=== PATIENT | male | born 1990 | race Two or more races ===

== ENCOUNTER 2024-11-09 08:58 | Emergency (ER) | payer MEDICAID ==
[~2024-11-09] VITALS: Ht 177.8 cm; Wt 79.3 kg
[2024-11-09] MEDS ORDERED: AMOX500T3 PO (09:20)
[2024-11-09] MEDS ORDERED: ACET500T58 PO (09:20)
[2024-11-09 09:29] VITALS: BP 115/74; PULSE 99; RESP 18; TEMP 98.1; O2SAT 95
--- NOTE | 2024-11-09 09:30 | ED.PDOC ---
Eye-HPI HPI Comments 33-year-old male who presents to the ED for chief complaint of tooth pain. The patient states he has been having tooth and jaw pain by the right upper incisors for the past two days. Patient states the pain had gone away temporarily but states it has been increasing with noted pain and swelling and patient came to the ED for further evaluation. Patient otherwise denies nausea vomiting fever cough chills. The patient vitals otherwise stable in the ED. patient denies having seen a dentist prior to ED arrival. Patient otherwise denies any other symptoms at this time. Chief Complaint: Tooth Pain Time Seen by MD: 09:18 Reviewed Notes: Medications, Allergies Allergies: Coded Allergies: NO KNOWN ALLERGIES (Unverified , 11/09/24) Home Meds Active Scripts Acetaminophen (Acetaminophen) 500 Mg Tab, 500 MG PO Q6HP PRN for 10 Days, #40 TAB 0 Refills Prov:MARLIN ELENA NP 11/09/24 Amoxicillin Trihydrate (Amoxicillin) 500 Mg Tab, 1 TAB PO BID for 10 Days, #20 TAB 0 Refills Prov:MARLIN ELENA [employer] 11/09/24 Information Source: Patient Mode of Arrival: Ambulatory Past Medical History PAST MEDICAL HISTORY: Denies Surgical History: Denies all surgeries Social History Smoker: Non-Smoker Alcohol: Denies ETOH Use Drugs: Denies Drug Use Lives In: Home All Other Systems: Reviewed and Negative (See HPI) Physical Exam General Appearance: No Apparent Distress, Normal HEENT: Normal ENT Inspection, Pharynx Normal, TMs Normal Neck: Full Range of Motion, Non-Tender, Normal, Normal Inspection Respiratory: Chest Non-Tender, Lungs Clear, No Accessory Muscle Use, No Respiratory Distress, Normal Breath Sounds Cardiovascular: No Murmur, No Gallop, Regular Rate/Rhythm Breast Exam: Deferred Gastrointestinal: No Organomegaly, Non Tender, No Pulsatile Mass, Normal Bowel Sounds, Soft Genitalia: Deferred Pelvic: Deferred Rectal: Deferred Extremities: No calf tenderness, Normal capillary refill, Normal inspection, Normal range of motion, Non-tender, No pedal edema Musculoskeletal : Apperance: Normal Neurologic: Alert, astronomy instructor II-XII nml as Tested, No Motor Deficits, Normal Affect, Normal Mood, No Sensory Deficits Cerebellar Function: Normal Reflexes: Normal Skin: Dry, Normal Color, Warm Lymphatic: No Adenopathy Was a procedure done? Was a procedure done?: No EENT DIFF Eye: Other Sore Throat: Peritonsillar Abscess, Peritonsillar Cellulitis Other Differential Diagnosis Dental pain, tooth pain, dental caries, X-Ray, Labs, Meds, VS Vital Signs Date Time Temp Pulse Resp B/P (MAP) Pulse Ox O2 Delivery O2 Flow Rate FiO2 11/09/24 09:29 99 18 95 Room Air 11/09/24 09:29 98.1 98 18 115/74 (88) 98 98.1 11/09/24 09:00 98.0 108 19 106/67 95 98.0 X-Ray, Labs, Meds, VS Comment 33-year-old male who presents to the ED for chief complaint of tooth pain. Patient arrives alert and oriented, ABC's intact, afebrile, vital signs stable, saturating well in room air Afebrile, vitals within normal limits. Exam as above and airway fully patent and in no respiratory distress. The patient has no neck swelling, no dysphonia or hoarseness, no lymphadenopathy. No trismus or swollen tongue to suggest Jani's angina. No overt e/o peritonsillar abscess or retropharyngeal abscess. No overt e/o deep space infection; nontoxic appearing and tolerating PO. Non-focal neuro exam with low suspicion for Lemierres. No pain with percussion, low suspicion for periapical abscess. No mastoid tenderness so do not suspect mastoiditis and no pain with manipulation of ear to suggest otitis externa. Trial antibiotics with cautious return precautions discussed w/ full understanding. Patient is stable for discharge at this time. External notes reviewed. Test results and diagnostic imaging interpreted. All diagnostic findings, discharge care, education and instructions provided Follow-up with PCP in 2 to 3 days Patient verbalized understanding and agreed to treatment plan Vital signs stable, afebrile, no acute distress noted Patient ambulatory with strong steady gait Advised to return precautions for any new or worsening symptoms, return to ER immediately for re-evaluation Patient is aware that the purpose of this visit was for an acute medical emergency requiring emergent stabilization. Chronic conditions, including malignancies have not been ruled out. Patient is instructed to follow up with PCP as directed and discharge instructions for continued care and workup. If unable to arrange follow-up, patient is to return to the emergency department for reassessment. Patient (parent or legal guardian if applicable) was given verbal and written discharge instructions and acknowledges understanding. Time of 1ST Reevaluation: 09:15 Reevaluation 1ST: Improved Patient Education/Counseling: Diagnosis, Treatment Family Education/Counseling: No Family Present SEPSIS Sepsis Screen Date sepsis recognized/suspect: Nov 09, 2024 Time Sepsis recognized/suspect: 899 Recent Procedure: No On Antibiotic Therapy: No Respiratory Rate >20: No Heart Rate >90: Yes Temp<36 C (96.8 F) or >38.3 C: No SBP <90 or MAP <65 mmHG: No New Acute Mental Status Change: No Is the patient on CPAP, BIPAP,: No Vital Signs Date Time Temp Pulse Resp B/P (MAP) Pulse Ox O2 Delivery O2 Flow Rate FiO2 11/09/24 09:29 99 18 95 Room Air 11/09/24 09:29 98.1 98 18 115/74 (88) 98 98.1 11/09/24 09:00 98.0 108 19 106/67 95 98.0 Departure 1 Departure Time of Disposition: 09:32 Impression: Primary Impression: Tooth pain Disposition: HOME / SELF CARE / HOMELESS Condition: Fair Additional Instructions: Discharge Note: Continue on your medications. Do not drive when taking narcotics. Drink plenty of fluids. Follow up with your primary Dentist. Take your prescriptions as ordered. If your condition becomes worse call and follow up with your primary Dr. for instructions or return to the ER if needed. Thank you for visiting [facility]. e-Prescriptions Acetaminophen (Acetaminophen) 500 Mg Tab 500 MG PO Q6HP PRN for 10 Days, #40 TAB 0 Refills Prov: MARLIN ELENA NP 11/09/24 Amoxicillin Trihydrate (Amoxicillin) 500 Mg Tab 1 TAB PO BID for 10 Days, #20 TAB 0 Refills Prov: MARLIN ELENA [employer] 11/09/24 Critical Care Note Critical Care Time?: No Stability Stability form required: No Heart Score Heart Score: Heart Score Response (Comments) Value History N/A 0 EKG N/A 0 Age N/A 0 Risk Factors N/A 0 Troponin N/A 0 Total 0 I personally scribed for MARLIN ELENA NP ([email or web address]) on 11/09/24 at 09:30. Electronically submitted by Kael SALOMON). MARLIN ELENA NP Nov 09, 2024 09:30
== END 2024-11-09 09:31 | disposition home or self-care (01) ==
LOC: ER 08:58
DX: K08.89 Other specified disorders of teeth and supporting structures (principal); Z79.899 Other long term (current) drug therapy

== ENCOUNTER 2025-02-23 10:00 | Emergency (ER) | payer SELFPAY ==
[~2025-02-23] VITALS: Ht 177.8 cm; Wt 78.0 kg
[~2025-02-23 10:00] MED LIST: ACET500T58 PO; AMOX500T3 PO
--- NOTE | 2025-02-23 10:38 | ED.PDOC ---
History of Present Illness HPI Comments 34M presents to the ER w/ prior MHx of Face pain/swelling. Pt reports on having a dental infx to a tooth that is missing and having similar facial swelling 3 months ago. Pt states on being given antibiotics which subsided the swelling but the pt had a flare up of swelling to the right maxillofacial region of the face. Denies any symptoms at this time. Patient denies any CP, SOB, dizziness, numbness, weakness, tingling, fever, chills, or recent fall. Chief Complaint: Face pain Time Seen by MD: 10:30 Reviewed Notes: Nurses Notes, Medications, Allergies Allergies: Coded Allergies: NO KNOWN ALLERGIES (Unverified , 11/09/24) Home Meds Active Scripts Clindamycin Hcl (Clindamycin Hcl) 300 Mg Cap, 1 CAP PO TID for 10 Days, #30 CAP Prov:BRENDAN NUNEZ MD 02/23/25 Amoxicillin & Pot Clavulanate (AUGMENTIN TABLET) 875 Mg Tb, 875 MG PO BID for 10 Days, #20 TAB Prov:BRENDAN NNUEZ MD 02/23/25 Acetaminophen (Acetaminophen) 500 Mg Tab, 500 MG PO Q6HP PRN for 10 Days, #40 TAB 0 Refills Prov:MARLIN ELENA NP 11/09/24 Amoxicillin Trihydrate (Amoxicillin) 500 Mg Tab, 1 TAB PO BID for 10 Days, #20 TAB 0 Refills Prov:MARLIN ELENA NP 11/09/24 Information Source: Patient Mode of Arrival: Ambulatory Severity: Moderate Timing: Hours Duration: Since onset, Hours Prehospital treatment: None Past Medical History PAST MEDICAL HISTORY: Denies Surgical History: Denies all surgeries Family History Family History: Reviewed,noncontributory to illness, Unknown Social History Smoker: Non-Smoker Alcohol: Denies ETOH Use Drugs: Denies Drug Use Lives In: Home Constitutional: denies: chills, diaphoresis, fatigue, fever, malaise, sweats, weakness, others EENTM: reports: others (right maxillofacial swelling); denies: blurred vision, double vision, ear bleeding, ear discharge, ear drainage, ear pain, ear ringing, eye pain, eye redness, hearing loss, mouth pain, mouth swelling, nasal discharge, nose bleeding, nose congestion, nose pain, photophobia, tearing, throat pain, throat swelling, voice changes Respiratory: denies: cough, hemoptysis, orthopnea, SOB at rest, shortness of breath, SOB with excertion, stridor, wheezing, others Cardiovascular: denies: chest pain, dizzy spells, diaphoresis, Dyspnea on exertion, edema, irregular heart beat, left arm pain, lightheadedness, palpitations, PND, syncope, others Gastrointestinal: denies: abdomen distended, abdominal pain, blood streaked bowels, constipated, diarrhea, dysphagia, difficulty swallowing, hematemesis, melena, nausea, poor appetite, poor fluid intake, rectal bleeding, rectal pain, vomiting, others Genitourinary: denies: burning, dysuria, flank pain, frequency, hematuria, incontinence, penile discharge, penile sore, pain, testicle pain, testicle swelling, urgency, others Neurological: denies: dizziness, fainting, headache, left sided numbness, left sided weakness, numbness, paresthesia, pre-existing deficit, right sided numbness, right sided weakness, seizure, speech problems, tingling, tremors, weakness, others Musculoskeletal: denies: back pain, gout, joint pain, joint swelling, muscle pain, muscle stiffness, neck pain, others Integumetry: denies: bruises, change in color, change in hair/nails, dryness, laceration, lesions, lumps, rash, wounds, others Allergic/Immunocompromised: denies: Difficulty Healing, Frequent Infections, Hives, Itching, others Hematologic/Lymphatic: denies: anemia, blood clots, easy bleeding, easy bruising, swollen glands, others Endocrine: denies: excessive hunger, excessive sweating, excessive thirst, excessive urination, flushing, intolerance to cold, intolerance to heat, unexplained weight gain, unexplained weight loss, others Psychiatric: denies: anxiety, bipolar disorder, depression, hopeless, panic d isorder, schizophrenia, sleepless, suicidal, others All Other Systems: Reviewed and Negative Physical Exam General Appearance: Moderate Distress, Normal HEENT: Normal ENT Inspection, Pharynx Normal, TMs Normal Neck: Full Range of Motion, Non-Tender, Normal, Normal Inspection Respiratory: Chest Non-Tender, Lungs Clear, No Accessory Muscle Use, No Respiratory Distress, Normal Breath Sounds Cardiovascular: No Edema, No JVD, No Murmur, No Gallop, Normal Peripheral Pulses, Regular Rate/Rhythm Breast Exam: Deferred Gastrointestinal: No Organomegaly, Non Tender, No Pulsatile Mass, Normal Bowel Sounds, Soft Genitalia: Deferred Pelvic: Deferred Rectal: Deferred Extremities: No calf tenderness, Normal capillary refill, Normal inspection, Normal range of motion, Non-tender, No pedal edema Musculoskeletal : Apperance: Normal Neurologic: Alert, pickle sorter II-XII nml as Tested, No Motor Deficits, Normal Affect, Normal Mood, No Sensory Deficits Cerebellar Function: Normal Reflexes: Normal Skin: Dry, Normal Color, Warm Peripheral Pulses: 3+ Radial (R), 3+ Radial (L) Lymphatic: No Adenopathy Was a procedure done? Was a procedure done?: No Differential Dx Considerations may include: Anemia Electrolyte imbalance X-Ray, Labs, Meds, VS Vital Signs Date Time Temp Pulse Resp B/P (MAP) Pulse Ox O2 Delivery O2 Flow Rate FiO2 02/23/25 15:55 98.7 98 17 122/83 (96) 96 98.7 02/23/25 13:57 98 Room Air* 0 21 02/23/25 12:17 104 17 96 Room Air 02/23/25 12:17 99.0 104 17 115/82 (93) 96 99.0 02/23/25 10:06 98.4 116 17 123/88 98 98.4 Current Medications Medications (Trade) Dose Ordered Sig/Tierra Route Start Time Stop Time Status Last Admin Ceftriaxone Sodium 50 ml @ 100 mls/hr ONCE ONCE IV 02/23/25 11:15 02/23/25 11:48 DC 02/23/25 13:47 Clindamycin Phosphate 50 ml @ 50 mls/hr ONCE ONCE IV 02/23/25 11:15 02/23/25 12:14 DC 02/23/25 13:47 Sodium Chloride 1,000 ml @ 1,000 mls/hr Q1H ONCE IV 02/23/25 11:15 02/23/25 12:14 DC 02/23/25 12:28 Patient alert. Came in because of right facial swelling. Dental infection. Vitals stable. Answering all questions. Was given Rocephin. Establish intravenous access. Was given fluids. Was given prescription of Augmentin clindamycin antibiotic. No acute process. Was told to follow up with his primary care physician. Was told to come back if there is any problem. Time of 1ST Reevaluation: 11:00 Reevaluation 1ST: Unchanged Patient Education/Counseling: Diagnosis, Treatment, Prognosis Family Education/Counseling: No Family Present SEPSIS Sepsis Screen Date sepsis recognized/suspect: Feb 23, 2025 Time Sepsis recognized/suspect: 1008 Recent Procedure: No On Antibiotic Therapy: No Respiratory Rate >20: No Heart Rate >90: Yes Temp<36 C (96.8 F) or >38.3 C: No SBP <90 or MAP <65 mmHG: No New Acute Mental Status Change: No Is the patient on CPAP, BIPAP,: No Vital Signs Date Time Temp Pulse Resp B/P (MAP) Pulse Ox O2 Delivery O2 Flow Rate FiO2 02/23/25 15:55 98.7 98 17 122/83 (96) 96 98.7 02/23/25 13:57 98 Room Air* 0 21 02/23/25 12:17 104 17 96 Room Air 02/23/25 12:17 99.0 104 17 115/82 (93) 96 99.0 02/23/25 10:06 98.4 116 17 123/88 98 98.4 Medications Medications Dose Ordered Sig/Tierra Route Start Time Stop Time Status Last Admin Dose Admin Ceftriaxone Sodium 50 ml @ 100 mls/hr ONCE ONCE IV 02/23/25 11:15 02/23/25 11:48 DC 02/23/25 13:47 Clindamycin Phosphate 50 ml @ 50 mls/hr ONCE ONCE IV 02/23/25 11:15 02/23/25 12:14 DC 02/23/25 13:47 Sodium Chloride 1,000 ml @ 1,000 mls/hr Q1H ONCE IV 02/23/25 11:15 02/23/25 12:14 DC 02/23/25 12:28 Departure 1 Departure Time of Disposition: 17:43 Impression: Primary Impression: Facial cellulitis Disposition: 30 STILL A PATIENT Condition: Good e-Prescriptions Clindamycin Hcl (Clindamycin Hcl) 300 Mg Cap 1 CAP PO TID for 10 Days, #30 CAP Prov: BRENDAN NUNEZ MD 02/23/25 Amoxicillin & Pot Clavulanate (AUGMENTIN TABLET) 875 Mg Tb 875 MG PO BID for 10 Days, #20 TAB Prov: BRENDAN NUNEZ MD 02/23/25 Discharged With: Self Critical Care Note Critical Care Time?: No Stability Stability form required: No I personally scribed for BRENDAN NUNEZ MD ([email or web address]) on 02/23/25 at 10:38. Electronically submitted by Tyson Reed ([email or web address]). BRENDAN NUNEZ MD Feb 23, 2025 10:38
[2025-02-23] MEDS: SODIUM CHLORIDE 0.9% 1,000 ML IV ONE (12:28)
[2025-02-23] MEDS: CLINDAMYCIN 900MG IV 50 ML IV ONE (13:47)
[2025-02-23 15:55] VITALS: BP 122/83; PULSE 98; RESP 17; TEMP 98.7; O2SAT 96
[2025-02-23] MEDS ORDERED: CLIN1CAP70 PO (17:44)
[2025-02-23] MEDS ORDERED: AUG875T PO (17:44)
== END 2025-02-23 15:56 | disposition home or self-care (01) ==
LOC: ER 10:00
DX: L03.211 Cellulitis of face (principal); Z79.899 Other long term (current) drug therapy
CPT/HCPCS: 96361; 96365; 96368; 99284; J0696; J3490; J7030